=== PATIENT | male | born 1980 | race Caucasian/White ===

== ENCOUNTER 2017-05-23 14:25 | Emergency (ER) | payer BC ==
[~2017-05-23] VITALS: Ht 172.7 cm; Wt 93.5 kg
[~2017-05-23 14:25] MED LIST: BIAXIN500 MG PO
[2017-05-23 15:28] LABS: HEMATOCRIT 47.8 % (38.0-50.0); HEMOGLOBIN 16.8 G/DL (12.5-16.6); MCH 31.6 PG (29.0-34.0); MCHC 35.1 G/DL (30.0-36.0); RBC DIS.WIDTH-CV 12.1 % (11.8-14.6); RBC DIS.WIDTH-SD 39.7 % (39-53); RED BLOOD COUNT 5.31 M/uL (4.00-5.50); WHITE BLOOD COUNT 9.5 K/uL (4.1-10.2)
[2017-05-23 15:41] LABS: CHLORIDE 106 mEq/L (99-109); POTASSIUM 4.2 mEq/L (3.7-5.4); SODIUM 139 mEq/L (136-147)
[2017-05-23 15:42] LABS: GLUCOSE 90 mg/dL (70-99)
[2017-05-23 15:46] LABS: CREATININE 1.2 mg/dL (0.6-1.3); GFR ESTIMATE (CALCULATED) > 59 mL/min/ (58.99-99999)
[2017-05-23 15:47] LABS: UREA NITROGEN (BUN) 10 mg/dL (9-23)
[2017-05-23 15:50] LABS: TROP-I INTERPRETATION NEGATIVE; TROPONIN-I < 0.01 ng/mL (0.0-0.30)
[2017-05-23 17:08] LABS: PLATELET COUNT 231 K/uL (156-360)
[2017-05-23] MEDS ORDERED: PREDNISONE5 M1 PO (17:18)
[2017-05-23 17:29] VITALS: BP 135/87
== END 2017-05-23 17:35 | disposition home or self-care (01) ==
LOC: EME 14:25
DX: R07.89 Other chest pain (principal); J45.909 Unspecified asthma, uncomplicated; F17.200 Nicotine dependence, unspecified, uncomplicated
CPT/HCPCS: 71046; 80048; 84484; 85027; 93005; 99281; 99284